=== PATIENT | female | born 1995 | race Caucasian/White ===

== ENCOUNTER 2020-05-14 07:30 | Observation (INO) | payer OTHER ==
[~2020-05-14] VITALS: Ht 157.5 cm; Wt 93.0 kg
[~2020-05-14 07:30] MED LIST: ACET-6134 PO; FERR325E14 PO; PREN-385 PO
[2020-05-14] MEDS ORDERED: TERBUTALINE 1 MG/ML VIAL SUBQ SCH (08:15)
[2020-05-14 08:23] VITALS: BP 142/75
[2020-05-14] MEDS ORDERED: TERBUTALINE 1 MG/ML VIAL SUBQ ONE (08:26)
== END 2020-05-14 14:22 | disposition home or self-care (01) ==
LOC: MLD 07:30
PROVIDERS: ADMIT Obstetrics & Gynecology; ATTEND Obstetrics & Gynecology
DX: Z03.818 Encounter for observation for suspected exposure to other biological agents ruled out (principal); O62.9 Abnormality of forces of labor, unspecified; Z3A.38 38 weeks gestation of pregnancy
CPT/HCPCS: 76805; 96372; G0378; J3105; Q0092; U0003; 59025; 81000